=== PATIENT | female | born 2000 | race Caucasian/White ===

== ENCOUNTER 2020-06-11 18:15 | Emergency (ER) | payer OTHER ==
[~2020-06-11] VITALS: Wt 63.5 kg
[2020-06-11 19:20] LABS: BILIRUBIN Negative (Negative); BLOOD Negative (Negative); CLARITY Turbid (Clear); COLOR Yellow (Yellow); GLUCOSE Negative (Negative); KETONE Negative (Negative); LEUKO ESTERASE Trace (Negative); NITRITE Negative (Negative); PH 6.5 (4.5-8.0); SPECIFIC GRAVITY 1.025 (1.001-1.030)
[2020-06-11 19:31] LABS: BACTERIA 1+
== END 2020-06-11 19:52 | disposition left against medical advice (07) ==
LOC: ED 18:15
PROVIDERS: Emergency Medicine
DX: Z32.02 Encounter for pregnancy test, result negative (principal)

== ENCOUNTER 2020-06-26 14:04 | Emergency (ER) | payer OTHER ==
[~2020-06-26] VITALS: Ht 157.4 cm; Wt 77.1 kg
[2020-06-26] MEDS ORDERED: OXYCODONE HCL5 M1 PO (14:34)
== END 2020-06-26 14:36 | disposition home or self-care (01) ==
LOC: ED 14:04
DX: G89.18 Other acute postprocedural pain (principal); Z76.0 Encounter for issue of repeat prescription; Z88.1 Allergy status to other antibiotic agents